=== PATIENT | female | born 1995 | race Caucasian/White ===

== ENCOUNTER 2021-10-13 22:48 | Emergency (ER) | payer SELFPAY ==
[2021-10-14 00:38] LABS: BASOPHIL 0.5 % (0-2); EOSINOPHIL 1.2 % (0-5); HCT 40.6 % (37.0-47.0); HGB 14.2 g/dl (12.5-16.0); LYMPHOCYTE 25.2 % (15-48); MCH 32.1 pg (25.0-31.0); MCV 91.6 fL (78.0-100.0); MONOCYTE 9.5 % (0-12); NEUTROPHIL 63.2 % (41-80); NRBC 0; PLT 266 K/uL (150-400); RBC 4.43 M/uL (4.20-5.40); RDW 12.1 % (11.5-14.0); WBC 11.2 K/uL (4.0-10.5)
[2021-10-14 00:44] LABS: ALBUMIN 3.7 g/dL (3.4-5.0); BILIRUBIN - TOTAL 0.4 mg/dL (0.2-1.0); BUN/CREAT RATIO (CALC) 14.3 RATIO; CREATININE 0.77 mg/dL (0.51-0.95); POTASSIUM 3.5 mmol/L (3.5-5.1); TOTAL PROTEIN 7.7 g/dL (6.4-8.2)
== END 2021-10-14 01:44 | disposition home or self-care (01) ==
LOC: FER 22:48
PROVIDERS: Emergency Medicine
DX: O21.9 Vomiting of pregnancy, unspecified (principal); Z3A.01 Less than 8 weeks gestation of pregnancy
CPT/HCPCS: 36415; 80053; 83690; 85025; 99284; J7030